=== PATIENT | female | born 1955 | race Caucasian/White ===

== ENCOUNTER 2018-07-30 11:48 | Emergency (ER) | payer BC ==
--- NOTE | 2018-07-30 13:21 | ED ---
Skin Complaint - HPI Summary HPI Summary: A 62 y/o female presents to [facility] with a chief complaint of possible shingles since 07/16/18. She has a rash on her back which she states bradshaw and itches. She rates her pain as 6/10. She denies a Hx of skin conditions. She has a Hx of HTN and DM. She also c/o fatigue. She denies Fever, Chills, Erythema (eyes), Sore throat, Chest pain, Shortness of Breath, Cough, Abdominal pain, Vomiting, Nausea, Dysuria, Hematuria, Myalgia, Edema and Dizziness. 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 She denies using new products, new soap or new clothes. She reports that her pets do not have fleas so she thought that she may have shingles, bed bugs or body lice. - History of Current Complaint Chief Complaint: EDRashSkinAbscess Time Seen by Provider: 07/30/18 12:47 Stated Complaint: POSS SHINGLES Hx Obtained From: Patient Onset/Duration: Started Weeks Ago, Still Present Skin Exposure Onset/Duration: Weeks Ago Timing: Constant, Lasting Weeks Onset Severity: Moderate Current Severity: Moderate Pain Intensity: 6 Pain Scale Used: 0-10 Numeric Skin Location: Other: - back Character: Pruritus, Painful Aggravating Symptom(s): Nothing Alleviating Symptom(s): Nothing Associated Signs & Symptoms: Rash - Allergy/Home Medications Allergies/Adverse Reactions: Allergies Allergy/AdvReac Type Severity Reaction Status Date / Time codeine Allergy Headache Verified 07/30/18 12:08 heparin Allergy See Comment Verified 07/30/18 12:08 procaine [From Novocain] Allergy See Comment Verified 07/30/18 12:08 PMH/Surg Hx/FS Hx/Imm Hx Endocrine/Hematology History: Reports: Hx Diabetes Cardiovascular History: Reports: Hx Hypertension - Cancer History Hx Chemotherapy: No Hx Radiation Therapy: No - Surgical History Surgery Procedure, Year, and Place: 1986 Infectious Disease History: No Infectious Disease History: Denies: Traveled Outside the [place] in Last 30 Days - Family History Known Family History: Positive: Diabetes Negative: Hypertension - Social History Alcohol Use: None Substance Use Type: Reports: None Hx Tobacco Use: No Smoking Status (MU): Never Smoked Tobacco Review of Systems Positive: Fatigue. Negative: Fever, Chills Negative: Erythema Negative: Sore Throat Negative: Chest Pain Negative: Shortness Of Breath, Cough Negative: Abdominal Pain, Vomiting, Nausea Negative: dysuria, hematuria Negative: Myalgia, Edema Positive: Rash Neurological: Negative - dizziness All Other Systems Reviewed And Are Negative: Yes Physical Exam - Summary Physical Exam Summary: Constitutional: Well-developed, Well-nourished, Alert. (-) Distressed Skin: Excoriated lesions on back and both flanks bilateral, not in dermatomal distribution. HENT: Normocephalic; Atraumatic Eyes: Conjunctiva normal Neck: Musculoskeletal ROM normal neck. (-) JVD, (-) Stridor, (-) Tracheal deviation Cardio: Rhythm regular, rate normal, Heart sounds normal; Intact distal pulses; The pedal pulses are 2+ and symmetric. Radial pulses are 2+ and symmetric. (-) Murmur Pulmonary/Chest wall: Effort normal. (-) Respiratory distress, (-) Wheezes, (-) Rales Abd: Soft, (-) epigastric tenderness, (-) Distension, (-) Guarding, (-) Rebound Musculoskeletal: (-) Edema Lymph: (-) Cervical adenopathy Neuro: Alert, Oriented x3 Psych: Mood and affect Normal Triage Information Reviewed: Yes Vital Signs On Initial Exam: Initial Vitals Temp Pulse Resp BP Pulse Ox 98.2 F 87 16 165/89 95 07/30/18 12:03 07/30/18 12:03 07/30/18 12:03 07/30/18 12:03 07/30/18 12:03 Vital Signs Reviewed: Yes Diagnostics - Vital Signs Vital Signs Temp Pulse Resp BP Pulse Ox 07/30/18 12:03 98.2 F 87 16 165/89 95 - Laboratory Lab Statement: Any lab studies that have been ordered have been reviewed, and results considered in the medical decision making process. Course/Dx - Course Course Of Treatment: A 62 y/o female presents to [facility] with a chief complaint of possible shingles since 07/16/18. She has a rash on her back which she states bradshaw and itches. She rates her pain as 6/10. She denies a Hx of skin conditions. She has a Hx of HTN and DM. She also c/o fatigue. She denies Fever, Chills, Erythema (eyes), Sore throat, Chest pain, Shortness of Breath, Cough, Abdominal pain, Vomiting, Nausea, Dysuria, Hematuria, Myalgia, Edema and Dizziness. 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 She denies using new products , new soap or new clothes. She reports that her pets do not have fleas so she thought that she may have shingles, bed bugs or body lice. Her PE revealed excoriated lesions on back and both flanks bilateral, not in dermatomal distribution. Diff dx bed bugs, fleas. Dx: dermatitis. She will be discharged with prescriptions for Benadryl and Deltasone. She was instructed to check her blood sugar 3 times daily, follow up with her PCP and return to the ED if she experiences any changing or worsening symptoms. She is agreeable with this plan. - Differential Diagnoses - Skin Complaint Differential Diagnoses: Other - Bed bugs, fleas - Diagnoses Provider Diagnoses: Dermatitis Discharge - Sign-Out/Discharge Documenting (check all that apply): Patient Departure - DC - Discharge Plan Condition: Stable Disposition: HOME Prescriptions: diPHENhydraMINE PO* [Benadryl PO 50 MG CAP*] 50 mg PO TID PRN #30 cap PRN Reason: Itching predniSONE TAB* [Deltasone 20 MG TAB*] 20 mg PO DAILY #5 tab Referrals: Navneet Uriostegui MD [Primary Care Provider] - 2 Days Additional Instructions: RETURN TO THE EMERGENCY DEPARTMENT FOR CHANGING OR WORSENING SYMPTOMS. CHECK BLOOD SUGAR 3 TIMES DAILY. - Billing Disposition and Condition Condition: STABLE Disposition: Home - Attestation Statements Document Initiated by Willy: Yes Documenting Scribe: Jamie Smart Provider For Whom Willy is Documenting (Include Credential): Leon Hoyos MD Scribe Attestation: Jamie Varghese scribed for Leon Hoyos MD on 08/07/18 at 1253. Scribe Documentation Reviewed: Yes Provider Attestation: The documentation as recorded by the Jamie santacruz accurately reflects the service I personally performed and the decisions made by me, Leon Hoyos MD Status of Scribe Document: Viewed
[2018-07-30 13:37] VITALS: BP 150/80
== END 2018-07-30 13:36 | disposition home or self-care (01) ==
LOC: ED 11:48
DX: R53.83 Other fatigue (principal); R21 Rash and other nonspecific skin eruption; Z88.5 Allergy status to narcotic agent; I10 Essential (primary) hypertension; E11.9 Type 2 diabetes mellitus without complications
CPT/HCPCS: 99281